=== PATIENT | male | born 1955 | race Caucasian/White ===

== ENCOUNTER 2019-12-18 12:13 | Inpatient (IN) | payer MEDICARE, MEDICAID ==
[~2019-12-18] VITALS: Ht 182.9 cm; Wt 78.7 kg
[~2019-12-18 12:13] MED LIST: ASPI-325; HYDR25TA4 PO; IPRIH INH; LISI2.5T47 PO
[2019-12-18 13:30] LABS: Basophils # (auto) 0.1 10 ^3/uL (0-0.2); Eosinophils # (auto) 0 10 ^3/uL (0-0.8); Eosinophils % (auto) 0.2 % (0.0-7.0); Hematocrit 49.4 % (41.0-53.0); Hemoglobin 17.2 g/dL (13.5-17.5); Mean Corpuscular Hemoglobin 32.2 pg (28.0-32.0); Mean Corpuscular Hgb Conc. 34.9 g/dL (32.0-36.0); Mean Corpuscular Volume 92.4 fL (80.0-100.0); Monocytes # (auto) 0.8 10 ^3/uL (0-1.3); Monocytes % (auto) 9.3 % (0.0-12.0); Neutrophils # (auto) 6.7 10 ^3/uL (1.6-8.6); Neutrophils % (auto) 77.5 % (37.0-80.0); Nucleated Red Blood Cells % 0.1 %; Platelet Count (auto) 182 10^3/uL (140-450); Red Blood Cells 5.34 10^6/uL (4.5-5.90); Red Cell Distribution Width 13.5 % (11.8-14.3); White Blood Cell 8.6 10^3/uL (4.4-10.8)
[2019-12-18 13:47] LABS: Blood Alcohol < 3.0 mg/dL (0-5); Magnesium 2.5 mg/dL (1.6-2.6)
[2019-12-18 13:50] LABS: INR 1.03 (0.9-1.15); Partial Thromboplastin Time 27.3 sec (23.0-31.2)
[2019-12-18 13:54] LABS: Albumin 4.1 g/dL (3.4-5.0); Calcium 8.9 mg/dL (8.5-10.1); Potassium 3.8 mmol/L (3.5-5.1)
[2019-12-18 13:57] LABS: BUN/Creatinine Ratio 22.8; Bilirubin, Total 0.7 mg/dL (0.2-1.0); Total Protein 7.4 g/dL (6.4-8.2)
[2019-12-18] MEDS ORDERED: NITROGLYCERIN 0.4 MG SL TAB SL PRN (15:15)
[2019-12-18] MEDS ORDERED: MORPHINE SULF INJ 2 MG/ML SYRINGE 1ML IV PRN ×2 (15:15→16:15)
[2019-12-18] MEDS ORDERED: TEMAZEPAM 15 MG CAP PO PRN (16:15)
[2019-12-18] MEDS ORDERED: ALBUTEROL SULF 2.5 MG/0.5ML(0.5%) NEB SOLN NEB PRN (16:15)
[2019-12-18] MEDS ORDERED: traMADol HCL 50 MG TAB PO PRN (16:15)
[2019-12-18] MEDS ORDERED: LABETALOL HCL 5 MG/ML ML 20ML VIAL IV PRN (16:15)
[2019-12-18] MEDS ORDERED: ACETAMINOPHEN 500 MG TAB PO PRN (16:15)
[2019-12-18] MEDS ORDERED: LACTULOSE 20Gm/30ML SOLN PO PRN ×2 (16:15)
[2019-12-18] MEDS ORDERED: PROMETHAZINE HCL 25 MG/ML 1ML IV PRN (16:15)
[2019-12-18] MEDS: methylPREDNISolone SOD SUCC 40 MG/ML VL IV SCH (17:43)
[2019-12-18] MEDS: ENOXAPARIN SOD 40 MG/0.4 ML SYRINGE SC SCH (17:44)
[2019-12-18] MEDS: DOXYCYCLINE 100 MG TAB/CAP PO SCH (17:44)
[2019-12-18] MEDS: SODIUM CHLORIDE 0.9% 1,000 ML IV SCH ×2 (17:45→22:09)
[2019-12-18] MEDS: ALBUTEROL SULF 2.5 MG/0.5ML(0.5%) NEB SOLN NEB SCH (18:29)
[2019-12-18] MEDS: IPRATROPIUM BROM 0.5 MG/2.5ML INH SOL NEB SCH (18:30)
[2019-12-18 18:36] LABS: Alcohol, Urine < 3.0 mg/dL (0-10); Amphetamine Screen, Urine POSITIVE (NEGATIVE); Barbiturate Scree,Urine NEGATIVE (NEGATIVE); Benzodiazephine Screen, Urine NEGATIVE (NEGATIVE); Cannabinoid Screen, Urine POSITIVE (NEGATIVE); Cocaine Screen, Urine NEGATIVE (NEGATIVE); Phencyclidine Screen, Urine NEGATIVE (NEGATIVE)
[2019-12-18 18:44] LABS: Opiate Scree,Urine NEGATIVE (NEGATIVE); Urine Bacteria NONE SEEN /hpf (None Seen); Urine Blood Negative /uL (Negative); Urine Mucus FEW (None Seen); Urine Specific Gravity 1.033 (1.001-1.035); Urine WBC 3 /hpf (0 - 3)
[2019-12-18] MEDS ORDERED: ASPirin 81 mg TAB PO ONE (19:15)
[2019-12-18 19:22] VITALS: BP 142/80
[2019-12-18 19:24] LABS: CRP High Sensitivity 0.04 mg/dL (< 0.3)
[2019-12-18 19:29] LABS: Creatine Kinase IFCC 59 U/L (39-308)
[2019-12-18 21:56] VITALS: BP 157/98
[2019-12-18 22:00] VITALS: BP 157/98
[2019-12-18] MEDS: ATORVASTATIN 20 MG TAB PO SCH (22:08)
[2019-12-19] MEDS: methylPREDNISolone SOD SUCC 40 MG/ML VL IV SCH ×2 (04:25→18:01)
[2019-12-19] MEDS: DOXYCYCLINE 100 MG TAB/CAP PO SCH ×2 (04:26→18:02)
[2019-12-19 05:00] VITALS: BP 161/104
[2019-12-19 06:14] LABS: Cholesterol 118 mg/dL (< 200); HDL Cholesterol 41 mg/dL (40-59); LDL Cholesterol 74 mg/dL (< 100); Triglycerides 83 mg/dL (< 150)
[2019-12-19] MEDS: ALBUTEROL SULF 2.5 MG/0.5ML(0.5%) NEB SOLN NEB SCH ×4 (07:39→19:09)
[2019-12-19] MEDS: IPRATROPIUM BROM 0.5 MG/2.5ML INH SOL NEB SCH ×4 (07:39→19:09)
[2019-12-19 08:55] VITALS: BP 150/87
[2019-12-19] MEDS: ASPirin 81 mg TAB PO SCH (09:48)
[2019-12-19] MEDS: ENOXAPARIN SOD 40 MG/0.4 ML SYRINGE SC SCH (09:49)
[2019-12-19] MEDS: ENALAPRIL MALEATE 10 MG TAB PO SCH (09:49)
[2019-12-19 13:00] VITALS: BP 141/70
[2019-12-19 16:55] VITALS: BP 165/91
[2019-12-19] MEDS: SODIUM CHLORIDE 0.9% 1,000 ML IV SCH (18:02)
[2019-12-19 22:00] VITALS: BP 162/97
[2019-12-19] MEDS: ATORVASTATIN 20 MG TAB PO SCH (22:00)
[2019-12-20] MEDS: DOXYCYCLINE 100 MG TAB/CAP PO SCH (03:54)
[2019-12-20] MEDS: methylPREDNISolone SOD SUCC 40 MG/ML VL IV SCH (03:54)
[2019-12-20] MEDS: SODIUM CHLORIDE 0.9% 1,000 ML IV SCH (04:04)
[2019-12-20 05:00] VITALS: BP 160/104
[2019-12-20] MEDS: ALBUTEROL SULF 2.5 MG/0.5ML(0.5%) NEB SOLN NEB SCH ×3 (08:02→12:00)
[2019-12-20] MEDS: IPRATROPIUM BROM 0.5 MG/2.5ML INH SOL NEB SCH ×3 (08:02→12:00)
[2019-12-20 09:00] VITALS: BP 166/101
[2019-12-20] MEDS: ENOXAPARIN SOD 40 MG/0.4 ML SYRINGE SC SCH (09:48)
[2019-12-20] MEDS: ENALAPRIL MALEATE 10 MG TAB PO SCH (09:48)
[2019-12-20] MEDS: ASPirin 81 mg TAB PO SCH (09:49)
[2019-12-20 11:01] VITALS: BP 149/98
== END 2019-12-20 13:00 | disposition home or self-care (01) | DRG 897 ==
LOC: ER 12:13 → EDBD 12:13 → TELE 12:14 → TELE-WESTW 21:00
PROVIDERS: ADMIT Internal Medicine; ATTEND Internal Medicine Pulmonary Disease
DX: F12.988 Cannabis use, unspecified with other cannabis-induced disorder (principal); J44.1 Chronic obstructive pulmonary disease with (acute) exacerbation; R55 Syncope and collapse; F15.90 Other stimulant use, unspecified, uncomplicated; N18.9 Chronic kidney disease, unspecified; F17.210 Nicotine dependence, cigarettes, uncomplicated; I12.9 Hypertensive chronic kidney disease with stage 1 through stage 4 chronic kidney disease, or unspecified chronic kidney disease; R42 Dizziness and giddiness; I16.0 Hypertensive urgency; R62.7 Adult failure to thrive; Z82.49 Family history of ischemic heart disease and other diseases of the circulatory system; Z68.23 Body mass index [BMI] 23.0-23.9, adult; Z86.73 Personal history of transient ischemic attack (TIA), and cerebral infarction without residual deficits
CPT/HCPCS: 36415; 70450; 71045; 80053; 80061; 80307; 80320; 81001; 82550; 83735; 84443; 84484; 85025; 85379; 85610; 85652; 85730; 86141; 93886; 94640; G0378

== ENCOUNTER 2020-02-15 12:30 | Inpatient (IN) | payer MEDICARE, MEDICAID ==
[~2020-02-15] VITALS: Ht 180.3 cm; Wt 76.4 kg
[2020-02-15] MEDS ORDERED: cloNIDine HCL 0.1 MG TAB PO ONE (13:00)
[2020-02-15 15:16] LABS: Basophils # (auto) 0.1 10 ^3/uL (0-0.2); Basophils % (auto) 0.9 % (0.0-2.0); Eosinophils # (auto) 0.1 10 ^3/uL (0-0.8); Eosinophils % (auto) 0.9 % (0.0-7.0); Hematocrit 42.5 % (41.0-53.0); Hemoglobin 14.4 g/dL (13.5-17.5); Lymphocytes # (auto) 1.9 10 ^3/uL (0.4-5.4); Lymphocytes % (auto) 18.4 % (10.0-50.0); Mean Corpuscular Hemoglobin 32.5 pg (28.0-32.0); Mean Corpuscular Hgb Conc. 33.9 g/dL (32.0-36.0); Mean Corpuscular Volume 95.8 fL (80.0-100.0); Monocytes # (auto) 1.1 10 ^3/uL (0-1.3); Monocytes % (auto) 10.9 % (0.0-12.0); Neutrophils # (auto) 7.1 10 ^3/uL (1.6-8.6); Neutrophils % (auto) 68.9 % (37.0-80.0); Platelet Count (auto) 221 10^3/uL (140-450); Red Blood Cells 4.43 10^6/uL (4.5-5.90); Red Cell Distribution Width 14.3 % (11.8-14.3); White Blood Cell 10.3 10^3/uL (4.4-10.8)
[2020-02-15 15:32] LABS: Alanine Aminotransferase 29 U/L (16-61); Albumin 3.6 g/dL (3.4-5.0); Anion Gap 3 (5-15); Aspartate Aminotransferase 23 U/L (15-37); BUN/Creatinine Ratio 21.1; Blood Urea Nitrogen 16 mg/dL (7-18); Calcium 8.4 mg/dL (8.5-10.1); Carbon Dioxide 32 mmol/L (21-32); Chloride 103 mmol/L (98-107); GFR African American 132 mL/min; GFR Non-African American 109 mL/min; Glucose 90 mg/dL (74-106); Potassium 4.3 mmol/L (3.5-5.1); Sodium 138 mmol/L (136-145)
[2020-02-15 15:36] LABS: Alkaline Phosphatase 96 U/L (45-117); Bilirubin, Total 0.5 mg/dL (0.2-1.0)
[2020-02-15] MEDS ORDERED: NITROGLYCERIN 0.4 MG SL TAB SL PRN (18:45)
[2020-02-15] MEDS ORDERED: DOCUSATE SOD 100 MG CAP PO PRN (18:45)
[2020-02-15] MEDS ORDERED: ONDANSETRON HCL 4 MG/2 ML VIAL IV PRN (18:45)
[2020-02-15] MEDS ORDERED: MORPHINE SULF INJ 2 MG/ML SYRINGE 1ML IV PRN ×2 (18:45)
[2020-02-15] MEDS ORDERED: HYDROcodone-ACET 5/325MG TAB PO PRN (18:45)
[2020-02-15] MEDS ORDERED: hydrALAZINE HCL 20 MG/ML VL IV PRN (18:45)
[2020-02-15] MEDS ORDERED: IOHEXOL 350 MG/ML 100ML IJ ONE (19:13)
[2020-02-15 20:42] LABS: Urine Bacteria NONE SEEN /hpf (None Seen); Urine Blood Negative /uL (Negative); Urine Specific Gravity 1.014 (1.001-1.035); Urine WBC <1 /hpf (0 - 3)
[2020-02-15 20:56] LABS: Alcohol, Urine < 3.0 mg/dL (0-10); Amphetamine Screen, Urine POSITIVE (NEGATIVE); Barbiturate Scree,Urine NEGATIVE (NEGATIVE); Benzodiazephine Screen, Urine NEGATIVE (NEGATIVE); Cannabinoid Screen, Urine POSITIVE (NEGATIVE); Cocaine Screen, Urine NEGATIVE (NEGATIVE); Opiate Scree,Urine NEGATIVE (NEGATIVE); Phencyclidine Screen, Urine NEGATIVE (NEGATIVE)
[2020-02-15 23:25] VITALS: BP 147/83
--- NOTE | 2020-02-16 03:05 | NUR ---
Telemetry admit from ER YANN BYNUM admitted to Telemetry. Patient oriented to Stefany Erwin, primary RN, unit, room, bed, and unit policies regarding patient care and visiting hours. Patient now on continuous telemetry monitoring, tele box # 49 and telemetry reading on arrival to unit is sinus rhythm 83. Patient placed on bedside oxygen, weighed by bedscale and encouraged to call if they need something. All questions and concerns addressed, patient verbalized understanding. Note:
--- NOTE | 2020-02-16 05:00 | NUR ---
Patient refused vital signs to be taken.
--- NOTE | 2020-02-16 06:34 | NUR ---
Patient still in regular clothes. Hospital gown offered. Patient refused. Toiletries at bedside. Patient refused to clean up. No complains of pain, no signs of respiratory distress. Report will be given to oncoming RN.
[2020-02-16 08:00] VITALS: BP 146/80
--- NOTE | 2020-02-16 08:25 | NUR ---
Opening Shift Note Received report from warehouse shift supervisor nurse, assumed care of patient, awake and alert. No S/S of distress/SOB or pain. Patient educated on proper hygiene and refuses bed linen change at this time. Instructed to call for assist PRN, will continue to monitor for changes Q1hr and PRN.
[2020-02-16 09:00] VITALS: BP 146/80
[2020-02-16] MEDS: amLODIPine BESYLATE 5 MG TAB PO SCH (09:37)
[2020-02-16] MEDS: ASPirin-EC 81 mg tab PO SCH (09:37)
[2020-02-16] MEDS: FAMOTIDINE 20 MG TAB PO SCH (09:37)
--- NOTE | 2020-02-16 11:39 | NUR ---
ATTEMPTED IV insertion IV access not obtained. Patient tolerated well.
[2020-02-16] MEDS ORDERED: FOLIC ACID 1 MG, MULTIPLE VITAMIN 10 ML, MAGNESIUM SULF SDV 50% 8 MEQ, THIAMINE INJ 100... INJ ONE ×5 (12:00)
[2020-02-16] MEDS: D5W/SOD CHLO 0.9% 1,000 ML IV SCH ×2 (12:49→18:10)
--- NOTE | 2020-02-16 13:20 | NUR ---
PATIENTS IV OUT ROUNDED ON PATIENT LEFT ARM BLEEDING, PATIENT STATES "SAT ON IV LINE AND TELE MONITOR, ALL MADE POP SOUND." BLOOD CLEANED FROM IV SITE, IV SITE COVERED WITH COBAN. IV CATHETER INTACT.
--- NOTE | 2020-02-16 14:02 | NUR ---
IV insertion IV access obtained, via clean sterile technique by inserting 20 gauge catheter at LFA after 1 attempt by Gonzalo RAPHAEL. IV secured properly. No trauma to site. Patient tolerated well.
--- NOTE | 2020-02-16 16:22 | NUR ---
assessment re: ss consult living situation Patient is a 64 year old male who is alert and oriented. Prior to admission patient lived home alone and functioned with assistance. Per patient he will return home to his prior living arrangements post discharge and family will transport him home. Patient informed me he has a fww and a cane for home use. Patients PCP is Dr Ulrich. Patient is weak and may benefit from home health for safety and PT on discharge. Patient agrees to home health. Patient has no home phone so home health will have to do a drive by. Patients address is [address] [place] [address]. Patient has no preference on agency to provide service. I have informed Dr Bazan. I informed patient he has a right to speak to a public health social worker regarding all care. I informed patient he has a right to participate in any and all discharge planning. Patient does not have a POA and advanced directive. I have offered patient information on POA and advanced directives. I informed the patient the advantages and benefits of having an Advanced Directive. Patient verbalized understanding and agreed to discharge plan. Addendum: 02/16/20 at 1630 by Shavon GARCIA Amended: Links added.
[2020-02-16 17:00] VITALS: BP 150/85
--- NOTE | 2020-02-16 19:42 | NUR ---
care endorsed to NOC RN.
--- NOTE | 2020-02-16 20:00 | NUR ---
Opening Shift Note Assumed care of patient, awake and alert. No S/S of distress/SOB or pain. Instructed on POC and to call for assist PRN, will continue to monitor for changes Q1hr and PRN.
--- NOTE | 2020-02-16 20:52 | NUR ---
Refused to fix the tele pad., patient is rude.
[2020-02-16 22:00] VITALS: BP 141/70
[2020-02-17] MEDS: D5W/SOD CHLO 0.9% 1,000 ML IV SCH ×2 (01:19→07:30)
--- NOTE | 2020-02-17 01:44 | NUR ---
Patient accidentally pulled out the i.v.line, but refused to insert a new one, said leave me alone.
--- NOTE | 2020-02-17 02:00 | NUR ---
Charge Nurse Car Mak encourage to agree insertion of a new i.v.line, still refused.
[2020-02-17 05:00] VITALS: BP 150/98
--- NOTE | 2020-02-17 07:20 | NUR ---
Report given to Bobby Hercules, patient is resting no distress.
--- NOTE | 2020-02-17 08:05 | NUR ---
Opening Shift Note Received report from table games shift manager nurse, assumed care of patient, awake and alert. No S/S of distress/SOB or pain. Patient stated wanting to step outside of unit for smoke break, patient given wheelchair and instructed to be back to the unit at a certain time frame, patient verbalized understanding.
--- NOTE | 2020-02-17 08:40 | NUR ---
PATIENT OFF UNIT ON SMOKE BREAK. Addendum: 02/17/20 at 0935 by DANAY TRIANA RN RN Amended: Links added.
--- NOTE | 2020-02-17 09:30 | NUR ---
PATIENT BACK ON UNIT PATIENT BACK FROM SMOKE BREAK, NO SIGNS OF DISTRESS, SOB OR PAIN. WILL CONTINUE TO MONITOR.
[2020-02-17] MEDS ORDERED: HCTZ 25 MG TAB PO SCH (10:00)
[2020-02-17] MEDS ORDERED: LISINOPRIL 20 MG TAB PO SCH (10:00)
[2020-02-17] MEDS: ASPirin-EC 81 mg tab PO SCH (10:00)
[2020-02-17] MEDS: amLODIPine BESYLATE 5 MG TAB PO SCH (10:01)
[2020-02-17] MEDS: FAMOTIDINE 20 MG TAB PO SCH (10:02)
--- NOTE | 2020-02-17 10:56 | NUR ---
AMBULATING WITH PHYSICAL THERAPY PATIENT AMBULATED VIA WALKER WITH PHYSICAL THERAPY DOWN THE HALLWAY AND BACK TO BED. NO SIGN OF DISTRESS OR SOB.
--- NOTE | 2020-02-17 11:00 | NUR ---
Physical Therapy Patient is ambulating with walker and PT.
--- NOTE | 2020-02-17 11:19 | NUR ---
PATIENT OFF UNIT FOR SMOKE BREAK
[2020-02-17 11:38] VITALS: BP 145/92
[2020-02-17] MEDS ORDERED: FOLIC ACID 1 MG, MULTIPLE VITAMIN 10 ML, MAGNESIUM SULF SDV 50% 8 MEQ, THIAMINE INJ 100... INJ SCH ×5 (12:00)
--- NOTE | 2020-02-17 12:00 | NUR ---
D/C Planning Regarding social service consult for home health safety evaluation, medication management, vitals and physical therapy. Patient did not have no home health preference and order was faxed to [facility] as MD request. Per Arina with [facility] patient has been accepted and service to start within 24-48hrs upon d.c day.
--- NOTE | 2020-02-17 12:45 | NUR ---
CALLED [facility] FOR PATIENT TRANSPORTATION. ETA 15-20 MINUTES.
--- NOTE | 2020-02-17 13:07 | NUR ---
Discharge instructions given as ordered. Encourage to follow up with PMD as instructed. All questions and concerns addressed. Patient verbalized understanding. Medication reconciliation form completed and copy given to patient. Telemetry unit returned to ICU. Patient taken to port cdl a driver via wheelchair with all personal belongings, accompanied by staff. No distress noted at time of departure.
== END 2020-02-17 13:07 | disposition home health service (06) | DRG 640 ==
LOC: EDBD 12:30 → ER 12:30 → TELE 12:31 → TELE-WESTW 21:05
PROVIDERS: ADMIT Nurse Practitioner Acute Care; ATTEND Family Medicine
DX: E86.0 Dehydration (principal); G93.41 Metabolic encephalopathy; N39.0 Urinary tract infection, site not specified; F10.129 Alcohol abuse with intoxication, unspecified; F19.10 Other psychoactive substance abuse, uncomplicated; F15.10 Other stimulant abuse, uncomplicated; F12.10 Cannabis abuse, uncomplicated; F17.210 Nicotine dependence, cigarettes, uncomplicated; J44.9 Chronic obstructive pulmonary disease, unspecified; Z79.899 Other long term (current) drug therapy; Z82.49 Family history of ischemic heart disease and other diseases of the circulatory system; Z71.6 Tobacco abuse counseling; Z71.51 Drug abuse counseling and surveillance of drug abuser; Z86.73 Personal history of transient ischemic attack (TIA), and cerebral infarction without residual deficits; Z91.14 Patient's other noncompliance with medication regimen
CPT/HCPCS: 36415; 70450; 71045; 71275; 80053; 80307; 81001; 83880; 84484; 85025; 93005; 96374; 97163; G0378; J7042

== ENCOUNTER 2020-03-14 01:36 | Emergency (ER) | payer MEDICARE, MEDICAID ==
[~2020-03-14] VITALS: Ht 172.7 cm; Wt 81.6 kg
[2020-03-14 02:53] VITALS: BP 164/104
[2020-03-14 03:28] LABS: Basophils # (auto) 0.1 10 ^3/uL (0-0.2); Basophils % (auto) 1.1 % (0.0-2.0); Eosinophils # (auto) 0.1 10 ^3/uL (0-0.8); Eosinophils % (auto) 1.4 % (0.0-7.0); Hematocrit 45.1 % (41.0-53.0); Hemoglobin 15.8 g/dL (13.5-17.5); Lymphocytes # (auto) 1.2 10 ^3/uL (0.4-5.4); Lymphocytes % (auto) 12.3 % (10.0-50.0); Mean Corpuscular Volume 94.1 fL (80.0-100.0); Monocytes # (auto) 1.1 10 ^3/uL (0-1.3); Monocytes % (auto) 11.8 % (0.0-12.0); Neutrophils % (auto) 73.4 % (37.0-80.0); Nucleated Red Blood Cells % 0.1 %; Platelet Count (auto) 218 10^3/uL (140-450); Red Blood Cells 4.79 10^6/uL (4.5-5.90); Red Cell Distribution Width 14.1 % (11.8-14.3); White Blood Cell 9.6 10^3/uL (4.4-10.8)
[2020-03-14 03:53] LABS: Albumin 3.9 g/dL (3.4-5.0); Calcium 9.1 mg/dL (8.5-10.1); Potassium 3.7 mmol/L (3.5-5.1)
[2020-03-14 03:56] LABS: BUN/Creatinine Ratio 34.1; Bilirubin, Total 0.4 mg/dL (0.2-1.0); Total Protein 7.4 g/dL (6.4-8.2)
== END 2020-03-14 04:38 | disposition home or self-care (01) ==
LOC: EDBD 01:36 → ER 01:46
DX: E86.0 Dehydration (principal); R53.1 Weakness; I10 Essential (primary) hypertension; F17.210 Nicotine dependence, cigarettes, uncomplicated; Z86.73 Personal history of transient ischemic attack (TIA), and cerebral infarction without residual deficits; Z79.899 Other long term (current) drug therapy; W18.39XA Other fall on same level, initial encounter; Y93.89 Activity, other specified; Y92.89 Other specified places as the place of occurrence of the external cause; Y99.8 Other external cause status
CPT/HCPCS: 36415; 80053; 85025

== ENCOUNTER 2020-05-03 10:55 | Emergency (ER) | payer MEDICARE, MEDICAID ==
[~2020-05-03] VITALS: Ht 172.7 cm; Wt 90.7 kg
[2020-05-03] MEDS ORDERED: methylPREDNISolone SOD SUCC 125 MG/2 ML VL IV ONE (11:15)
[2020-05-03] MEDS ORDERED: IPRATROPIUM BROM 0.5 MG/2.5ML INH SOL NEB ONE (11:15)
[2020-05-03] MEDS ORDERED: ALBUTEROL SULF 2.5 MG/0.5ML(0.5%) NEB SOLN NEB ONE (11:15)
[2020-05-03] MEDS ORDERED: amLODIPine BESYLATE 5 MG TAB PO ONE (11:45)
[2020-05-03 11:50] LABS: Basophils # (auto) 0.1 10 ^3/uL (0-0.2); Eosinophils # (auto) 0.1 10 ^3/uL (0-0.8); Eosinophils % (auto) 1.3 % (0.0-7.0); Hematocrit 45.7 % (41.0-53.0); Hemoglobin 15.7 g/dL (13.5-17.5); Lymphocytes # (auto) 1.4 10 ^3/uL (0.4-5.4); Lymphocytes % (auto) 16.8 % (10.0-50.0); Mean Corpuscular Hemoglobin 32.7 pg (28.0-32.0); Mean Corpuscular Hgb Conc. 34.4 g/dL (32.0-36.0); Mean Corpuscular Volume 95.1 fL (80.0-100.0); Monocytes # (auto) 1.1 10 ^3/uL (0-1.3); Monocytes % (auto) 13.5 % (0.0-12.0); Neutrophils # (auto) 5.6 10 ^3/uL (1.6-8.6); Neutrophils % (auto) 67.4 % (37.0-80.0); Nucleated Red Blood Cells % 0.1 %; Platelet Count (auto) 193 10^3/uL (140-450); Red Blood Cells 4.81 10^6/uL (4.5-5.90); White Blood Cell 8.2 10^3/uL (4.4-10.8)
[2020-05-03 12:06] LABS: Albumin 3.7 g/dL (3.4-5.0); Anion Gap 1 (5-15); Blood Urea Nitrogen 25 mg/dL (7-18); Calcium 8.7 mg/dL (8.5-10.1); Carbon Dioxide 33 mmol/L (21-32); Chloride 104 mmol/L (98-107); Glucose 94 mg/dL (74-106); Potassium 4.7 mmol/L (3.5-5.1); Sodium 138 mmol/L (136-145)
[2020-05-03 12:08] LABS: Urine Bacteria NONE SEEN /hpf (None Seen); Urine Blood Negative /uL (Negative); Urine Specific Gravity 1.022 (1.001-1.035); Urine WBC <1 /hpf (0 - 3)
[2020-05-03 12:12] LABS: Alanine Aminotransferase 47 U/L (16-61); Alkaline Phosphatase 131 U/L (45-117); Aspartate Aminotransferase 27 U/L (15-37); BUN/Creatinine Ratio 19.4; Bilirubin, Total 0.2 mg/dL (0.2-1.0); GFR African American 72 mL/min; GFR Non-African American 59 mL/min; Total Protein 7.6 g/dL (6.4-8.2)
[2020-05-03 15:00] VITALS: BP 145/71
== END 2020-05-03 14:37 | disposition home or self-care (01) ==
LOC: ER 10:55 → EDBD 10:55 → ER 14:37
DX: J44.1 Chronic obstructive pulmonary disease with (acute) exacerbation (principal); I10 Essential (primary) hypertension; F17.210 Nicotine dependence, cigarettes, uncomplicated; Z86.73 Personal history of transient ischemic attack (TIA), and cerebral infarction without residual deficits; Z20.822 Contact with and (suspected) exposure to COVID-19
CPT/HCPCS: 36415; 71045; 80053; 81001; 83880; 84484; 85025; 87426; 93005; 94640; 96374; 99285; C9803; J2930; J7644; U0003